=== PATIENT | female | born 1980 | race Caucasian/White ===

== ENCOUNTER 2016-08-20 13:32 | Emergency (ER) | payer OTHER ==
[2016-08-20] MEDS ORDERED: FLEXERIL10 MG PO (13:35)
[2016-08-20] MEDS ORDERED: FLONASE 0.05% N16 G1 INH (13:36)
[2016-08-20] MEDS ORDERED: BENTYL20 MG PO (13:36)
[2016-08-20] MEDS ORDERED: NEURONTIN600 MG PO (13:36)
[2016-08-20] MEDS ORDERED: HYDROCODON-ACE1 EAC5 PO (13:36)
[2016-08-20] MEDS ORDERED: ZOFRAN PO (13:37)
[2016-08-20] MEDS ORDERED: IMITREX6 MG/0.53 (13:37)
[2016-08-20] MEDS ORDERED: AFRIN15 M1 INH (13:37)
[2016-08-20] MEDS ORDERED: IMITREX PO (13:37)
[2016-08-20 13:56] LABS: URINE SOURCE CLEAN CATCH
[2016-08-20 14:02] LABS: URINE APPEARANCE CLEAR; URINE BILIRUBIN NEG (NEG); URINE BLOOD NEG (NEG); URINE COLOR YELLOW; URINE GLUCOSE NEG (NORM); URINE KETONE NEG (NEG); URINE LEUKOCYTE ESTERASE NEG (NEG); URINE NITRATE NEG (NEG); URINE PH 6.5 (5-8); URINE PROTEIN NEG (NEG)
[2016-08-20 14:03] LABS: MICRO INDICATED? NO
== END 2016-08-20 14:31 | disposition left against medical advice (07) ==
LOC: SED 13:32
PROVIDERS: Emergency Medicine
DX: R59.0 Localized enlarged lymph nodes (principal); F17.200 Nicotine dependence, unspecified, uncomplicated; M79.7 Fibromyalgia; Z98.890 Other specified postprocedural states
CPT/HCPCS: 81003; 84703; 99284